=== PATIENT | female | born 1990 | race Caucasian/White ===

== ENCOUNTER 2022-09-04 09:01 | Outpatient (CLI) | payer OTHER, SELFPAY | END 2022-09-04 09:02 | disposition home or self-care (01) | LOC: NFLDREF 09:02 | PROVIDERS: PCP Nurse Practitioner Family; Visit Provider Registered Nurse | DX: Z01.419 Encounter for gynecological examination (general) (routine) without abnormal findings (principal); E66.9 Obesity, unspecified; Z13.6 Encounter for screening for cardiovascular disorders; Z13.1 Encounter for screening for diabetes mellitus | CPT/HCPCS: 80061 ==

== ENCOUNTER 2022-09-08 08:10 | Outpatient (CLI) | payer OTHER, SELFPAY ==
--- NOTE | 2022-09-08 08:15 | CRLHL7_ITS ---
For Patients: As a result of the Century Cures Act, medical imaging exams and procedure reports are released immediately into your electronic medical record. You may view this report before your referring provider. If you have questions, please contact your health care provider. Indication: left lateral torso area palp/tender lump. pain radiates to breast occasionally Technique: Grayscale and color Doppler ultrasound of the left lateral chest wall performed. Comparison: None Findings: There is a circumscribed nonvascular isoechoic nodule within the left lateral chest wall, not involving the breast tissue, measuring 1.6 x 0.8 x 2.1 cm. Impression: Benign subcutaneous lipoma measuring 2.1 cm. No evidence of malignancy. Discussed with the patient. Dictated by Momo Cade MD @ 09/08/2022 9:23:34 AM (Electronically Signed)
== END 2022-09-08 08:11 | disposition home or self-care (01) ==
LOC: US 08:11
PROVIDERS: PCP Nurse Practitioner Family; Visit Provider Registered Nurse
DX: M79.622 Pain in left upper arm (principal); D17.1 Benign lipomatous neoplasm of skin and subcutaneous tissue of trunk
CPT/HCPCS: 76882

== ENCOUNTER 2022-12-31 18:56 | Outpatient (CLI) | payer OTHER, SELFPAY | END 2022-12-31 18:57 | disposition home or self-care (01) | LOC: NFLDUCREF 18:57 | PROVIDERS: PCP Nurse Practitioner Family; Visit Provider Nurse Practitioner Family | DX: J02.0 Streptococcal pharyngitis (principal) | CPT/HCPCS: 87070 ==